=== PATIENT | female | born 1950 | race Two or more races ===

== ENCOUNTER → 2017-01-08 | Outpatient (REF) | payer OTHER | LOC: M SFHCLERA 14:28 | PROVIDERS: ATTEND Nurse Practitioner Family | DX: R30.0 Dysuria (principal) | CPT/HCPCS: 81002; 87088; 87186; G0463 ==

== ENCOUNTER → 2017-06-02 | Outpatient (REF) | payer OTHER ==
[2017-06-02 12:41] LABS: BASO # 0.1 10^3/uL (0.0-0.2); BASO % 0.6 % (0.0-1.0); EOS # 0.4 10^3/uL (0.0-0.50); EOS % 4.4 % (0.0-3.0); IMMATURE GRANULOCYTE % 0.3 % (0-0); LYMPH # 2.8 10^3/uL (1.5-4.5); MEAN CORPUSCULAR HEMOGLOBIN 25.8 pg (27.0-33.0); MEAN CORPUSCULAR HGB CONC 30.8 g/dl (32.0-36.5); MEAN CORPUSCULAR VOLUME 83.7 fl (80.0-96.0); MONO # 0.5 10^3/uL (0.0-0.8); NEUTROPHILS % 56.7 % (36.0-66.0); PLATELET COUNT, AUTOMATED 361 10^3/uL (150-450); RED CELL DISTRIBUTION WIDTH 14.4 % (11.5-14.5); WHITE BLOOD COUNT 8.8 10^3/uL (4.0-10.0)
[2017-06-02 12:55] LABS: FOLATE 14.1 NG/ML (>5.4); VITAMIN B12 LEVEL 350 PG/ML (247-911)
[2017-06-02 12:57] LABS: ALBUMIN 3.8 GM/DL (3.2-5.2); ALBUMIN/GLOBULIN RATIO 1.06 (1.00-1.93); ALKALINE PHOSPHATASE 125 U/L (45-117); ALT/SGPT 22 U/L (12-78); ANION GAP 4 MEQ/L (8-16); AST/SGOT 20 U/L (15-37); BILIRUBIN,TOTAL 0.3 MG/DL (0.2-1.0); BLOOD UREA NITROGEN 12 MG/DL (7-18); CALCIUM LEVEL 9.3 MG/DL (8.8-10.2); CARBON DIOXIDE LEVEL 32 MEQ/L (21-32); CHLORIDE LEVEL 103 MEQ/L (98-107); CREATININE FOR GFR 0.84 MG/DL (0.55-1.02); GLOMERULAR FILTRATION RATE > 60.0 (>45); GLUCOSE, FASTING 167 MG/DL (80-110); POTASSIUM SERUM 4.5 MEQ/L (3.5-5.1); SODIUM LEVEL 139 MEQ/L (136-145); TOTAL PROTEIN 7.4 GM/DL (6.4-8.2)
[2017-06-02 13:40] LABS: ERYTHROCYTE SEDIMENTATION RATE 45 mm/hr (0-30)
== END ==
LOC: M LABNEURO 11:49
PROVIDERS: ATTEND Psychiatry & Neurology Neurology
DX: R20.2 Paresthesia of skin (principal); Z13.29 Encounter for screening for other suspected endocrine disorder; R41.3 Other amnesia; Z79.899 Other long term (current) drug therapy

== ENCOUNTER → 2019-05-29 | Outpatient (CLI) | payer MEDICARE ==
[~2019-05-29] MED LIST: ISOVUE-370 76% 100ML VIAL (Q9967) As Ordered ONE
--- NOTE | 2019-05-30 09:31 | REP ---
Clinical: Hydronephrosis. Technique: Axial precontrast, contrast enhanced, and delayed images of the abdomen and pelvis using 100 ml Isovue 370 intravenous contrast material with coronal and sagittal re-formations. Comparison: 05/12/2019 (outside examination) . Findings: Previously identified mild perinephric and periureteral stranding (left greater than right) has resolved and may have reflected a mild pyelonephritis. There is no evidence for hydroureteronephrosis. Incidental 2.5 cm right peripelvic simple cyst remains unchanged. No further urinary tract pathology is appreciated. Bladder is unremarkable. Liver, spleen, pancreas, and bilateral adrenal glands are normal. Evidence of prior cholecystectomy. Postsurgical changes with evidence for partial resection and anastomoses in the right lower quadrant noted. No evidence for bowel obstruction or acute inflammatory enteric process. Pelvis demonstrates normal bladder and age-appropriate uterus/adnexa. No ascites. No free air. No adenopathy. Atherosclerotic changes to the aorta without aneurysm or dissection. Musculoskeletal structures are intact. Lung bases demonstrate mild irregular changes in the visualized right middle lobe and lingula which remain stable compared to prior examination. Impression: 1. Stable 2.5 cm simple right peripelvic renal cyst. Otherwise normal appearance to the urinary tract system. No hydronephrosis or obvious acute uropathy. 2. No further acute abdominopelvic pathology appreciated. 3. Subtle nodularity with trace bronchiectasis to the right middle lobe and 1.5 cm round subpleural lesion in the visualized lingula again noted and unchanged. These findings are nonspecific. Consider follow-up chest CT to evaluate for stability unless prior examinations are available for comparison. Electronically Signed by Robert Vasques MD 05/30/2019 09:23 A
== END ==
LOC: M RAD 12:54
PROVIDERS: ATTEND Urology
DX: N13.30 Unspecified hydronephrosis (principal)
CPT/HCPCS: 74178; Q9967

== ENCOUNTER → 2019-06-05 | Outpatient (CLI) | payer MEDICARE ==
--- NOTE | 2019-06-05 18:53 | REP ---
CT of the chest without IV contrast: Comparison is the plain film study dated 05/18/2011. There are multiple small sub centimeter ground-glass nodules throughout the right lung. I do not identify any small ground-glass nodules in the left lung. This finding is nonspecific and could represent inflammatory, infectious or neoplastic etiologies. There is a pleural-based 1.4 cm nodular density at the inferior tip of the lingula on image 65. This is nonspecific and could represent a true lung nodule, atelectasis or subsegmental infiltrate. Follow-up to complete resolution is recommended. There are no pleural effusions. There is no mediastinal or axillary lymphadenopathy. The study is insensitive for hilar adenopathy in the absence of IV contrast. The unenhanced thoracic aorta is unremarkable. Cardiac size is normal. The visualized upper abdomen demonstrates surgical clips in the gallbladder fossa. The adrenals are unremarkable. Impression: Multiple small nonspecific ground-glass nodules throughout the right lung. There is a pleural-based 1.4 cm nodular density at the inferior tip of the lingula. No adenopathy or pleural effusion. Electronically Signed by Sadi Baltazar MD 06/05/2019 06:45 P
== END ==
LOC: M RAD 16:50
PROVIDERS: ATTEND Internal Medicine Pulmonary Disease
DX: R91.8 Other nonspecific abnormal finding of lung field (principal)

== ENCOUNTER → 2019-06-21 | Outpatient (REF) | payer MEDICARE ==
[2019-06-21 17:49] LABS: BASO # 0.1 10^3/uL (0.0-0.2); BASO % 0.7 % (0.0-1.0); EOS # 0.3 10^3/uL (0.0-0.5); EOS % 4.4 % (0.0-3.0); HEMATOCRIT 37.6 % (36.0-47.0); HEMOGLOBIN 11.9 g/dl (12.0-15.5); LYMPH # 2.7 10^3/uL (1.5-5.0); LYMPH % 37.7 % (24.0-44.0); MEAN CORPUSCULAR HEMOGLOBIN 28.1 pg (27.0-33.0); MEAN CORPUSCULAR HGB CONC 31.6 g/dl (32.0-36.5); MEAN CORPUSCULAR VOLUME 88.7 fl (80.0-96.0); MONO # 0.5 10^3/uL (0.0-0.8); MONO % 7.3 % (0.0-5.0); NEUTROPHILS # 3.5 10^3/uL (1.5-8.5); NEUTROPHILS % 49.5 % (36.0-66.0); PLATELET COUNT, AUTOMATED 258 10^3/uL (150-450); RED BLOOD COUNT 4.24 10^6/uL (4.00-5.40); WHITE BLOOD COUNT 7.1 10^3/uL (4.0-10.0)
[2019-06-21 17:55] LABS: INR 1.09; PROTHROMBIN TIME 13.9 SECONDS (11.8-14.0)
[2019-06-21 17:56] LABS: PARTIAL THROMBOPLASTIN TIME 35.9 SECONDS (25.0-38.4)
[2019-06-21 18:16] LABS: BLOOD UREA NITROGEN 18 MG/DL (7-18); CALCIUM LEVEL 9.1 MG/DL (8.8-10.2); CARBON DIOXIDE LEVEL 30 MEQ/L (21-32); CHLORIDE LEVEL 102 MEQ/L (98-107); CREATININE FOR GFR 0.92 MG/DL (0.55-1.30); GLOMERULAR FILTRATION RATE > 60.0 (>45); GLUCOSE, FASTING 197 MG/DL (70-100); IMMUNOGLOBULIN G 722 MG/DL (681-1648); IMMUNOGLOBULIN M 83.4 MG/DL (40-230); POTASSIUM SERUM 5.2 MEQ/L (3.5-5.1); RHEUMATOID FACTOR QUANT < 10.0 IU/ML (<15.0); SODIUM LEVEL 137 MEQ/L (136-145)
[2019-06-27 00:06] LABS: ASPERGILLUS FLAVUS ABY Negative (Neg:<1:1); ASPERGILLUS FUMIGATUS ABY Negative (Neg:<1:1); ASPERGILLUS NIGER ABY Negative (Neg:<1:1); CYCLIC CITRULLINATED PEPTIDE 7 units (0-19)
== END ==
LOC: M LAB REF 17:06
PROVIDERS: ATTEND Internal Medicine Pulmonary Disease
DX: R91.1 Solitary pulmonary nodule (principal); J47.9 Bronchiectasis, uncomplicated
CPT/HCPCS: 80048; 82784; 82785; 85025; 85610; 85730; 86200; 86431; 86606; G0463

== ENCOUNTER 2019-07-03 07:40 | Day surgery (SDC) | payer MEDICARE ==
[~2019-07-03] VITALS: Ht 165.1 cm; Wt 91.5 kg
[~2019-07-03 07:40] MED LIST changes: +BENA20TA PO; +CYMB60CA3 PO; +FERR325T16 PO; +GABA600T4 PO; +GEMF600T5 PO; +HUMI40KI SC; -ISOVUE-370 76% 100ML VIAL (Q9967) As Ordered ONE; +LIDOCAINE 1% MDV 20ML VIAL SQ PRN; +LR 1,000 ML IV ONE; +METF10004 PO; +OMEP40CA97 PO; +PAME75CA PO; +TRES100I SC; +XANA0.25 PO
[2019-07-03] MEDS ORDERED: fentaNYL 250 MCG/5 ML INJECTION (J3010) As Ordered ONE (07:46)
[2019-07-03] MEDS ORDERED: ROCURONIUM BROMIDE 50 MG/5 ML VIAL As Ordered ONE (07:47)
[2019-07-03] MEDS ORDERED: PROPOFOL 200 MG/20 ML VIAL As Ordered ONE (07:47)
[2019-07-03] MEDS ORDERED: LIDOCAINE 2% INJ 100 MG/5 ML SDV (FOR ANES.) As Ordered ONE (07:47)
[2019-07-03] MEDS ORDERED: MIDAZOLAM INJ 2 MG/2 ML VIAL (J2250) As Ordered ONE (07:47)
[2019-07-03] MEDS ORDERED: DEXTROSE 50% 50 ML SYRINGE IV ONE (08:45)
[2019-07-03] MEDS ORDERED: THROMBIN SOLN 5,000 UNITS VIAL As Ordered ONE (08:47)
[2019-07-03] MEDS ORDERED: EPINEPHrine INJ 1 MG/ML 1ML AMP As Ordered ONE (08:47)
[2019-07-03] MEDS ORDERED: CETACAINE SPRAY 5GM As Ordered ONE (08:47)
[2019-07-03] MEDS ORDERED: LIDOCAINE 1% SDV INJ 30 ML VIAL As Ordered ONE (08:47)
[2019-07-03] MEDS ORDERED: LIDOCAINE VISCOUS 2% SOLN 15ML UDC As Ordered ONE (08:48)
[2019-07-03] MEDS ORDERED: GLUCOSE TABS PO (08:54)
[2019-07-03] MEDS ORDERED: EPINEPHrine 1MG/10ML SYRINGE 1.5IN As Ordered ONE ×2 (08:55→10:16)
[2019-07-03] MEDS ORDERED: dexameTHASONE 4 MG/ML 1ML VIAL (J1100) As Ordered ONE (09:43)
[2019-07-03] MEDS ORDERED: ONDANSETRON 4MG/2ML VIAL (J2405) As Ordered ONE (09:43)
[2019-07-03] MEDS ORDERED: SUGAMMADEX SODIUM 500 MG/5 ML VIAL (BRIDION) As Ordered ONE (09:49)
[2019-07-03] MEDS ORDERED: ONDANSETRON 4MG/2ML VIAL (J2405) IV PRN (11:00)
[2019-07-03] MEDS ORDERED: LR 1,000 ML IV SCH (11:00)
[2019-07-03] MEDS ORDERED: oxyCODONE 5MG TAB PO PRN (11:00)
[2019-07-03] MEDS ORDERED: fentaNYL 100 MCG/2 ML INJECTION (J3010) IV PRN (11:00)
--- NOTE | 2019-07-03 11:06 | REP ---
Clinical: Status post bronchoscopy . Comparison: 05/18/2011 . Findings: The mediastinum and cardiac silhouette are stable and within normal limits for portable technique. The lung arroyo are clear without acute consolidation, effusion, or pneumothorax. Skeletal structures are intact. Impression: No acute cardiopulmonary process appreciated. Electronically Signed by Robert Vasques MD 07/03/2019 10:57 A
--- NOTE | 2019-07-03 11:10 | REP ---
Limited chest x-ray series: Two views. History: Bronchoscopic evaluation. 1 minute 58 seconds of fluoroscopy time is reported. Findings: A sequence two last image hold fluoroscopically obtained spot radiographs demonstrate bronchoscopy and associated catheter manipulation left lung base. Electronically Signed by Jesús York MD 07/03/2019 11:53 A
[2019-07-03 12:32] VITALS: BP 150/68
--- NOTE | 2019-07-03 12:56 | ROOR ---
Patient Name: Elly Cabrera Procedure Date: 07/03/2019 9:11 AM Date of : 1950 Admit Type: Outpatient Age: 68 Room: Main OR Note Status: Finalized Attending MD: Tracie Martini MD Procedure: Bronchoscopy Indications: Left upper lobe nodule, Abnormal CT scan of chest Providers: Tracie Martini MD (Doctor) Referring MD: Kevin Wolff Md (Referring MD) Requesting Physician: Medicines: General Anesthesia, Cetacaine topical Complications: No immediate complications. Estimated blood loss: Minimal Procedure: Pre-Anesthesia Assessment: - Prior to the procedure, a History and Physical was performed, and patient medications and allergies were reviewed. The patient's tolerance of previous anesthesia was also reviewed. The risks and benefits of the procedure and the sedation options and risks were discussed with the patient. All questions were answered, and informed consent was obtained. Prior Anticoagulants: The patient has taken aspirin. ASA Grade Assessment: II - A patient with mild systemic disease. After reviewing the risks and benefits, the patient was deemed in satisfactory condition to undergo the procedure. The Bronchoscope was introduced through the mouth, via the endotracheal tube (the patient was intubated for the procedure) and advanced to the tracheobronchial tree of both lungs. The procedure was accomplished without difficulty. The patient tolerated the procedure well. Findings: The endotracheal tube is in good position. The visualized portion of the trachea is of normal caliber. The bina is sharp. The tracheobronchial tree was examined to at least the first subsegmental level. Bronchial anatomy is normal; there are no endobronchial lesions. There were some thick white mucoid secretions throughout the lung and bronchial mucosa with webbing and in HENRRY there was some edematous mucosa with no endobronchial lesions. Electromagnetic navigation bronchoscopy utilizing the Cortex[employer]esiSplendia system with iLogic upgrade was performed. The CT scan was used for planning purposes. A virtual bronchoscopic image was generated using the planning software and the bina, left main bronchus bina, left lower lobe basilar segment, right upper lobe, right middle lobe and right lower lobe basilar segment registration points were marked on the virtual image. The target in the inferior lingula segment of the left upper lobe was marked. A nodule 1.5 cm in size was found and a pathway was created. After a complete airway exam, the locatable guide/extended working channel was inserted and an automatic registration was performed by advancing the scope through the bina, left main bronchus bina, left lower lobe basilar segment, right upper lobe, right middle lobe and right lower lobe basilar segment. The navigation phase was then begun to locate the target lesion(s). Positioning off-center (in relation to the lesion) was confirmed using the Olympus radial probe US catheter. The locatable guide was removed from the extended working channel. Fluoroscopy guided transbronchial brushings of a nodule were obtained in the inferior lingula segment of the left upper lobe with a needle brush and sent for routine cytology. Transbronchial brushing technique was selected because the sampling site was not visible endoscopically. Transbronchial needle aspirations of a nodule were performed in the inferior lingula segment of the left upper lobe GenCut needle and sent for routine cytology. The procedure was guided by fluoroscopy. Transbronchial needle aspiration technique was selected because the sampling site was not visible endoscopically. Transbronchial biopsies of a nodule were performed in the inferior lingula segment of the left upper lobe using forceps and sent for histopathology examination. The procedure was guided by fluoroscopy. Transbronchial biopsy technique was selected because the sampling site was not visible endoscopically. Bronchoalveolar lavage was performed in the HENRRY inferior lingular segment (B5) of the lung and sent for cell count, bacterial culture, viral smears & culture, and fungal & AFB analysis and cytology. The return was blood-tinged. Bronchoalveolar lavage was performed in the RUL anterior segment (B3) of the lung and sent for cell count, bacterial culture, viral smears & culture, and fungal & AFB analysis and cytology. The return was blood-tinged. Bronchoalveolar lavage was performed in the RML medial segment (B5) of the lung and sent for cell count, bacterial culture, viral smears & culture, and fungal & AFB analysis and cytology. The return was cloudy. Mucous plugs were present in the return fluid. Bronchoalveolar lavage was performed in the RLL superior segment (B6) of the lung and sent for cell count, bacterial culture, viral smears & culture, and fungal & AFB analysis and cytology. The return was cloudy. Impression: - Left upper lobe nodule - Abnormal CT scan of chest - The airway examination was normal, some thick white mucoid secretions. - Electromagnetic navigation bronchoscopy was performed. - Transbronchial brushings were obtained of nodule in lingula. - A transbronchial needle aspiration was performed of nodule in lingula. - Transbronchial lung biopsies were performed of nodule in lingula. - Bronchoalveolar lavage was performed in lingula. - Bronchoalveolar lavage was performed in RUL. - Bronchoalveolar lavage was performed RML. - Bronchoalveolar lavage was performed in RLL. Recommendation: - Follow up with bronchoscopist as previously scheduled. Attending Participation: I personally performed the entire procedure. Tracie Martini MD 07/03/2019 12:55:55 PM Number of Addenda: 0 Note Initiated On: 07/03/2019 9:11 AM
[2019-07-03 14:10] LABS: COLOR COLORLESS (COLORLESS); SOURCE RIGHT LOWER LOBE
[2019-07-03 14:11] LABS: APPEARANCE CLEAR (CLEAR)
[2019-07-03 14:22] LABS: APPEARANCE CLEAR (CLEAR); COLOR COLORLESS (COLORLESS); SOURCE RIGHT MIDDLE LOBE
[2019-07-03 14:41] LABS: COLOR PINK (COLORLESS); SOURCE RIGHT UPPER LOBE
[2019-07-03 14:42] LABS: APPEARANCE TURBID (CLEAR)
[2019-07-03 14:45] LABS: SOURCE BRON ALVEOLAR LAVAGE
[2019-07-03 14:46] LABS: APPEARANCE HAZY (CLEAR); COLOR PINK (COLORLESS)
[2019-07-03 16:38] LABS: MONOCYTES/MACROPHAGES, BAL 20 %
[2019-07-03 16:45] LABS: MONOCYTES/MACROPHAGES, BAL 13 %
[2019-07-03 16:52] LABS: MONOCYTES/MACROPHAGES, BAL 9 %
== END 2019-07-03 12:45 | disposition home or self-care (01) ==
LOC: M SDC 07:40
PROVIDERS: ATTEND Internal Medicine Pulmonary Disease
DX: R91.1 Solitary pulmonary nodule (principal); J47.9 Bronchiectasis, uncomplicated; R05 Cough; I10 Essential (primary) hypertension; E78.5 Hyperlipidemia, unspecified; E11.9 Type 2 diabetes mellitus without complications; K21.9 Gastro-esophageal reflux disease without esophagitis; D64.9 Anemia, unspecified; M79.7 Fibromyalgia; L40.9 Psoriasis, unspecified; F41.9 Anxiety disorder, unspecified; F32.9 Major depressive disorder, single episode, unspecified; Z88.7 Allergy status to serum and vaccine; Z79.899 Other long term (current) drug therapy; Z87.891 Personal history of nicotine dependence
CPT/HCPCS: 31623; 31624; 31627; 31628; 31629; 71045; 76000; 87070; 87077; 87102; 87116; 87184; 87186; 87205; 87206; 88104; 88108; 88173; 88305; 88313; 89051; J1100; J2250; J2405; J3010

== ENCOUNTER → 2019-10-02 | Outpatient (CLI) | payer MEDICARE ==
[~2019-10-02] MED LIST changes: +GLUCOSE TABS PO; -LIDOCAINE 1% MDV 20ML VIAL SQ PRN; -LR 1,000 ML IV ONE
--- NOTE | 2019-10-02 18:08 | REP ---
Whole body radionuclide PET scan: Comparison is a chest CT dated 06/05/2019. On the chest CT there is a pleural-based 1.4 cm nodule at the inferior tip of the left upper lobe lingular segment. In addition, there are approximately five small 5 mm ground-glass nodules in the right lung. However, these are too small to be visualized on PET scan. PET scanning is performed from skull base to the upper thighs: Neck and supraclavicular areas: There is a hypermetabolic focus in the mentum of the mandible to the left of midline. The maximal standard uptake value is 6.5. This may be related to dentition. There are no other foci in the neck or supraclavicular areas. Chest: The the 1.4 cm nodule inferiorly in the lingula demonstrates a standard uptake a maximal standard uptake value of 0.75, indicating there is no radiotracer uptake. There are no hypermetabolic foci otherwise in the chest. Abdomen, pelvis and upper thighs: There are no hypermetabolic foci. There is nonspecific bowel uptake. Impression: There is no radiolabeling of the 1.4 cm lung nodule in the lingular segment of the left upper lobe. There is an hypermetabolic focus in the mentum of the mandible to the left of midline, possibly related to dentition. There are no other hypermetabolic foci. The study is performed with 9.03 mCi of F 18 FDG. Electronically Signed by Sadi Baltazar MD 10/02/2019 06:00 P
== END ==
LOC: M PLARAD 08:17
PROVIDERS: ATTEND Internal Medicine Pulmonary Disease
DX: R91.1 Solitary pulmonary nodule (principal)
CPT/HCPCS: 78815; A9552

== ENCOUNTER → 2020-10-16 | Outpatient (CLI) | payer MEDICARE ==
--- NOTE | 2020-10-17 08:08 | REP ---
INDICATION: OTHER NONSPECIFIC ABNORMAL FINDING OF LUNG COMPARISON: 06/05/2019 TECHNIQUE: Axial noncontrast images from the thoracic inlet to the upper abdomen with coronal and sagittal reformations. This CT examination was performed using the following dose reduction techniques: Automated exposure control, adjustment of mA and/or kv according to the patient's size, and use of iterative reconstruction technique. FINDINGS: Moderate bronchiectatic changes are appreciated along with small scattered nodular densities up to 3 mm which are somewhat similar to prior examination and otherwise nonspecific. There is an area of possibly progressive chronic atelectasis involving the lingula which is increased from prior examination. No acute consolidation, obvious significant nodule or mass lesion otherwise appreciated. No pleural effusion. No pneumothorax. Mediastinal lymph nodes measure up to approximately 11 mm in the pretracheal space and are nonspecific. Atherosclerotic changes to the thoracic aorta and coronary arteries noted without aortic aneurysm or cardiomegaly. Surrounding musculoskeletal structures demonstrate age-related changes without acute osseous abnormality. Limited upper abdomen demonstrates normal bilateral adrenal glands and evidence for prior cholecystectomy. IMPRESSION: Relatively chronic appearing changes as described above including bronchiectasis and subtle scattered small nodular densities similar to prior examination along with presumed progressive chronic atelectasis at the lingula. Correlation with physical examination and auscultation is recommended. <Electronically signed by Robert Vasques > 10/17/20 [id number]
== END ==
LOC: M RAD 13:03
PROVIDERS: ATTEND Internal Medicine Pulmonary Disease
DX: J47.9 Bronchiectasis, uncomplicated (principal); R91.8 Other nonspecific abnormal finding of lung field

== ENCOUNTER 2021-05-26 12:44 | Emergency (ER) | payer MEDICARE ==
[~2021-05-26] VITALS: Ht 165.1 cm; Wt 90.4 kg
[~2021-05-26 12:44] MED LIST changes: +FERR324T21 PO; -FERR325T16 PO; +OMEP40CA4 PO; -OMEP40CA97 PO
[2021-05-26] MEDS ORDERED: XELJ5TAB (13:18)
[2021-05-26 15:21] LABS: BASO % 0.3 % (0.0-1.0); EOS # 0.1 10^3/uL (0.0-0.5); EOS % 0.9 % (0.0-3.0); HEMOGLOBIN 11.9 g/dl (12.0-15.5); LYMPH # 2.7 10^3/uL (1.5-5.0); LYMPH % 23.4 % (24.0-44.0); MEAN CORPUSCULAR HEMOGLOBIN 27.9 pg (27.0-33.0); MEAN CORPUSCULAR HGB CONC 31.3 g/dl (32.0-36.5); MONO # 0.5 10^3/uL (0.0-0.8); NEUTROPHILS # 8.3 10^3/uL (1.5-8.5); NEUTROPHILS % 70.9 % (36.0-66.0); PLATELET COUNT, AUTOMATED 323 10^3/uL (150-450); RED BLOOD COUNT 4.27 10^6/uL (4.00-5.40); WHITE BLOOD COUNT 11.7 10^3/uL (4.0-10.0)
[2021-05-26 15:31] LABS: INR 0.99; PROTHROMBIN TIME 13.5 SECONDS (12.7-14.5)
[2021-05-26 15:32] LABS: PARTIAL THROMBOPLASTIN TIME 33.8 SECONDS (25.9-37.0)
[2021-05-26 15:52] LABS: ALBUMIN 3.7 GM/DL (3.2-5.2); ALT/SGPT 37 U/L (12-78); BILIRUBIN,DIRECT 0.1 MG/DL (0.0-0.2); BILIRUBIN,TOTAL 0.2 MG/DL (0.2-1.0); LIPASE 66 U/L (73-393); TOTAL PROTEIN 7.2 GM/DL (6.4-8.2)
[2021-05-26 16:08] LABS: BLOOD UREA NITROGEN 15 MG/DL (7-18); CALCIUM LEVEL 9.4 MG/DL (8.8-10.2); CARBON DIOXIDE LEVEL 32 MEQ/L (21-32); CHLORIDE LEVEL 103 MEQ/L (98-107); CREATININE FOR GFR 0.84 MG/DL (0.55-1.30); GLOMERULAR FILTRATION RATE > 60.0 (>39); GLUCOSE, FASTING 94 MG/DL (70-100); SODIUM LEVEL 140 MEQ/L (136-145)
--- NOTE | 2021-05-26 16:11 | REP ---
INDICATION: r rib pain, cough COMPARISON: 07/03/2019, 05/18/2011. TECHNIQUE: PA/Lateral FINDINGS: Lungs: There is mild bibasilar fibro atelectatic change. There is no acute infiltrate or pneumothorax. Heart: Normal in size. Mediastinum: Mediastinal silhouette unremarkable. Pleural angles: Unremarkable.. Bones and soft tissues: There are degenerative changes of the spine without compression deformity. IMPRESSION: No acute pulmonary disease. <Electronically signed by Sadi Rodriguez > 05/26/21 [id number]
[2021-05-26] MEDS ORDERED: KETOROLAC 30 MG/ML 1ML VIAL IV ONE (16:25)
--- NOTE | 2021-05-26 16:57 | REP ---
INDICATION: R flank pain, bloody stools. COMPARISON: 05/29/2019 the latest prior before and after contrast TECHNIQUE: Standard helical technique without intravenous or oral bowel preparatory contrast administration. Stone protocol utilized due to right flank pain. FINDINGS: The lung bases are unchanged. There is a stable pleural base nodule in the inferior lingula. The liver and spleen are unchanged. The pancreas and adrenal glands are unchanged. The kidneys are essentially unchanged. There is a right renal cyst status quo. There is no nephroureterolithiasis, hydronephrosis, or hydroureter. The abdominal aorta and para-aortic regions are unchanged. There is no significant change in appearance of the bowel loops or the mesenteries. There is a likely incidental 2 cm sized left ovarian cyst. There is no evidence of free fluid or free air. Bone window technique throughout the examination shows no significant change in appearance of the osseous structures. IMPRESSION: There is no evidence of acute disease. CT findings as described above. <Electronically signed by Timi Pugh > 05/26/21 [id number]
[2021-05-26 17:34] VITALS: BP 142/82
== END 2021-05-26 17:46 | disposition home or self-care (01) ==
LOC: M ED 12:44
DX: K64.4 Residual hemorrhoidal skin tags (principal); K62.5 Hemorrhage of anus and rectum; S29.012A Strain of muscle and tendon of back wall of thorax, initial encounter; X58.XXXA Exposure to other specified factors, initial encounter; Y92.9 Unspecified place or not applicable; Y93.9 Activity, unspecified; Y99.9 Unspecified external cause status; E11.9 Type 2 diabetes mellitus without complications; I10 Essential (primary) hypertension; Z90.49 Acquired absence of other specified parts of digestive tract; Z87.19 Personal history of other diseases of the digestive system; Z79.4 Long term (current) use of insulin; Z79.899 Other long term (current) drug therapy; Z88.7 Allergy status to serum and vaccine
CPT/HCPCS: 71046; 74176; 80047; 80048; 80076; 83690; 85025; 85610; 85730; 86850; 86900; 86901; 96374; 99284; J1885

== ENCOUNTER → 2021-10-26 | Outpatient (CLI) | payer MEDICARE ==
[~2021-10-26] MED LIST changes: -CYMB60CA3 PO; +CYMB60CA4 PO; +XELJ5TAB
== END ==
LOC: M RAD 12:53
PROVIDERS: ATTEND Internal Medicine Pulmonary Disease
DX: R91.8 Other nonspecific abnormal finding of lung field (principal); J47.9 Bronchiectasis, uncomplicated; J98.11 Atelectasis; I70.0 Atherosclerosis of aorta; I25.10 Atherosclerotic heart disease of native coronary artery without angina pectoris

== ENCOUNTER → 2022-01-07 | Outpatient (CLI) | payer MEDICARE | LOC: M RAD 15:30 | PROVIDERS: ATTEND Internal Medicine Pulmonary Disease | DX: J47.9 Bronchiectasis, uncomplicated (principal); R05.9 Cough, unspecified; R91.8 Other nonspecific abnormal finding of lung field ==

== ENCOUNTER → 2022-03-24 | Outpatient (CLI) | payer MEDICARE ==
[2022-03-24 15:17] LABS: BASO % 0.4 % (0.0-1.0); EOS # 0.4 10^3/uL (0.0-0.5); EOS % 4.5 % (0.0-3.0); HEMATOCRIT 35.3 % (36.0-47.0); HEMOGLOBIN 10.6 g/dl (12.0-15.5); LYMPH # 2.2 10^3/uL (1.5-5.0); MEAN CORPUSCULAR HEMOGLOBIN 26.4 pg (27.0-33.0); MEAN CORPUSCULAR VOLUME 87.8 fl (80.0-96.0); MONO # 0.6 10^3/uL (0.0-0.8); MONO % 6.3 % (2.0-8.0); NEUTROPHILS # 5.9 10^3/uL (1.5-8.5); NEUTROPHILS % 64.3 % (36.0-66.0); PLATELET COUNT, AUTOMATED 314 10^3/uL (150-450); RED BLOOD COUNT 4.02 10^6/uL (4.00-5.40); WHITE BLOOD COUNT 9.2 10^3/uL (4.0-10.0)
[2022-03-24 15:46] LABS: ERYTHROCYTE SEDIMENTATION RATE 49 mm/hr (0-30)
== END ==
LOC: M PLALAB 13:42
PROVIDERS: ATTEND Physician Assistant Surgical
DX: L03.115 Cellulitis of right lower limb (principal)

== ENCOUNTER → 2022-04-02 | Outpatient (CLI) | payer MEDICARE | LOC: M RAD 15:11 | PROVIDERS: ATTEND Physician Assistant Surgical | DX: M79.661 Pain in right lower leg (principal); L03.115 Cellulitis of right lower limb ==

== ENCOUNTER → 2022-08-24 | Outpatient (REF) | payer MEDICARE | LOC: M LAB REF 16:59 | PROVIDERS: ATTEND Internal Medicine Pulmonary Disease | DX: J47.1 Bronchiectasis with (acute) exacerbation (principal) ==

== ENCOUNTER 2023-05-04 17:31 | Emergency (ER) | payer MEDICARE ==
[~2023-05-04] VITALS: Ht 165.1 cm; Wt 80.1 kg
[2023-05-04 17:32] VITALS: TEMP 98.2
[2023-05-04] MEDS ORDERED: STEL45IN (17:49)
[2023-05-04] MEDS ORDERED: EXCETAB32 PO (17:54)
[2023-05-04] MEDS ORDERED: VITA-243 PO (17:54)
[2023-05-04] MEDS ORDERED: OMEG10002 PO (17:54)
[2023-05-04] MEDS ORDERED: PRES10CA2 PO (17:54)
[2023-05-04] MEDS ORDERED: CHOL125C5 PO (17:54)
[2023-05-04] MEDS ORDERED: ZINC220CA PO (17:54)
[2023-05-04] MEDS ORDERED: CO Q100C PO (17:54)
[2023-05-04 19:27] LABS: BASO % 0.2 % (0.0-1.0); EOS # 0.7 10^3/uL (0.0-0.5); EOS % 5.9 % (0.0-3.0); HEMATOCRIT 32.3 % (36.0-47.0); HEMOGLOBIN 10.3 g/dl (12.0-15.5); LYMPH # 1.4 10^3/uL (1.5-5.0); LYMPH % 11.4 % (24.0-44.0); MEAN CORPUSCULAR HEMOGLOBIN 26.7 pg (27.0-33.0); MEAN CORPUSCULAR HGB CONC 31.9 g/dl (32.0-36.5); MEAN CORPUSCULAR VOLUME 83.7 fl (80.0-96.0); MONO # 0.9 10^3/uL (0.0-0.8); MONO % 7.3 % (2.0-8.0); NEUTROPHILS # 9.4 10^3/uL (1.5-8.5); NEUTROPHILS % 74.6 % (36.0-66.0); PLATELET COUNT, AUTOMATED 307 10^3/uL (150-450); RED BLOOD COUNT 3.86 10^6/uL (4.00-5.40); WHITE BLOOD COUNT 12.6 10^3/uL (4.0-10.0)
[2023-05-04 19:35] LABS: LIPASE 22 U/L (12-53)
[2023-05-04 19:37] LABS: ALBUMIN 2.5 G/DL (3.2-5.2); ALKALINE PHOSPHATASE 333 U/L (46-116); ALT/SGPT 33 U/L (7.0-40); AST/SGOT 28 U/L (<34); BILIRUBIN,DIRECT < 0.1 MG/DL (<0.4); BILIRUBIN,TOTAL 0.2 MG/DL (0.3-1.2); BLOOD UREA NITROGEN 14 MG/DL (9-23); CALCIUM LEVEL 8.5 MG/DL (8.3-10.6); CARBON DIOXIDE LEVEL 26 MMOL/L (20-31); CHLORIDE LEVEL 99 MMOL/L (98-107); CREATININE FOR GFR 0.89 MG/DL (0.55-1.30); GLOMERULAR FILTRATION RATE > 60.0 (>39); GLUCOSE, FASTING 234 MG/DL (74-106); POTASSIUM SERUM 4.8 MMOL/L (3.5-5.1); SODIUM LEVEL 134 MMOL/L (136-145)
[2023-05-04] MEDS ORDERED: NS 1,000 ML IV ONE (20:00)
[2023-05-04] MEDS ORDERED: ISOVUE-370 76% 100ML VIAL As Ordered ONE (20:05)
[2023-05-04 20:46] LABS: INR 1.47; PARTIAL THROMBOPLASTIN TIME 37.5 SECONDS (24.8-34.2); PROTHROMBIN TIME 17.5 SECONDS (12.5-14.5)
[2023-05-04] MEDS ORDERED: AMOX875T2 PO (21:38)
[2023-05-04] MEDS ORDERED: AUGMENTIN 875 MG TAB PO ONE (21:40)
[2023-05-04 21:51] VITALS: BP 145/66; O2SAT 99
== END 2023-05-04 21:52 | disposition home or self-care (01) ==
LOC: M ED 17:31
DX: K52.9 Noninfective gastroenteritis and colitis, unspecified (principal); I25.10 Atherosclerotic heart disease of native coronary artery without angina pectoris; R91.1 Solitary pulmonary nodule; Z79.4 Long term (current) use of insulin; Z79.899 Other long term (current) drug therapy; Z88.7 Allergy status to serum and vaccine
CPT/HCPCS: 71260; 74177; 80048; 80076; 81001; 83690; 85025; 85610; 85730; 86850; 86900; 86901; 87086; 99284; Q9967

== ENCOUNTER 2023-09-05 13:43 | Emergency (ER) | payer MEDICARE, OTHER ==
[~2023-09-05] VITALS: Ht 165.1 cm; Wt 77.8 kg
[~2023-09-05 13:43] MED LIST changes: +AMOX875T2 PO; +CHOL125C5 PO; +CO Q100C PO; +EXCETAB32 PO; +OMEG10002 PO; +PRES10CA2 PO; +STEL45IN; +VITA-243 PO; +ZINC220CA PO
[2023-09-05] MEDS ORDERED: PRED20TA PO (15:44)
[2023-09-05] MEDS ORDERED: predniSONE 20 MG TAB PO ONE (15:45)
[2023-09-05 15:56] VITALS: BP 140/63; TEMP 99.2; O2SAT 96
== END 2023-09-05 16:02 | disposition home or self-care (01) ==
LOC: M ED 13:43
DX: U07.1 COVID-19 (principal); J44.1 Chronic obstructive pulmonary disease with (acute) exacerbation; R00.0 Tachycardia, unspecified; I49.1 Atrial premature depolarization; M79.7 Fibromyalgia; E78.5 Hyperlipidemia, unspecified; I10 Essential (primary) hypertension; E11.9 Type 2 diabetes mellitus without complications; Z88.7 Allergy status to serum and vaccine; Z87.891 Personal history of nicotine dependence; Z79.4 Long term (current) use of insulin; Z79.52 Long term (current) use of systemic steroids; Z79.83 Long term (current) use of bisphosphonates; Z79.899 Other long term (current) drug therapy
CPT/HCPCS: 71046; 87486; 87581; 87633; 87798; 93005; 99284; J7512

== ENCOUNTER → 2023-10-17 | Outpatient (CLI) | payer OTHER ==
[~2023-10-17] MED LIST changes: +PRED20TA PO
== END ==
LOC: M RAD 10:26
PROVIDERS: ATTEND Internal Medicine Pulmonary Disease
DX: J47.9 Bronchiectasis, uncomplicated (principal)

== ENCOUNTER 2023-10-23 12:05 | Emergency (ER) | payer OTHER ==
[~2023-10-23] VITALS: Ht 165.1 cm; Wt 77.2 kg
[2023-10-23 14:26] LABS: BASO % 0.3 % (0.0-1.0); EOS # 0.1 10^3/uL (0.0-0.5); EOS % 0.4 % (0.0-3.0); HEMATOCRIT 33.6 % (36.0-47.0); HEMOGLOBIN 10.5 g/dl (12.0-15.5); LYMPH # 1.5 10^3/uL (1.5-5.0); LYMPH % 13.2 % (24.0-44.0); MEAN CORPUSCULAR HEMOGLOBIN 26.1 pg (27.0-33.0); MEAN CORPUSCULAR HGB CONC 31.3 g/dl (32.0-36.5); MEAN CORPUSCULAR VOLUME 83.4 fl (80.0-96.0); MONO # 0.7 10^3/uL (0.0-0.8); MONO % 6.6 % (2.0-8.0); NEUTROPHILS # 8.8 10^3/uL (1.5-8.5); NEUTROPHILS % 79.1 % (36.0-66.0); PLATELET COUNT, AUTOMATED 324 10^3/uL (150-450); RED BLOOD COUNT 4.03 10^6/uL (4.00-5.40); WHITE BLOOD COUNT 11.1 10^3/uL (4.0-10.0)
[2023-10-23 14:54] LABS: ALBUMIN 2.7 G/DL (3.2-5.2); ALKALINE PHOSPHATASE 193 U/L (46-116); ALT/SGPT 27 U/L (7.0-40); AST/SGOT 26 U/L (<34); BILIRUBIN,DIRECT < 0.1 MG/DL (<0.4); BILIRUBIN,TOTAL 0.3 MG/DL (0.3-1.2); BLOOD UREA NITROGEN 16 MG/DL (9-23); CALCIUM LEVEL 8.6 MG/DL (8.3-10.6); CARBON DIOXIDE LEVEL 26 MMOL/L (20-31); CHLORIDE LEVEL 102 MMOL/L (98-107); CREATININE FOR GFR 0.67 MG/DL (0.55-1.30); GLOMERULAR FILTRATION RATE > 60.0 (>39); GLUCOSE, FASTING 247 MG/DL (74-106); SODIUM LEVEL 134 MMOL/L (136-145)
[2023-10-23 14:57] LABS: THYROXINE (T4) 4.6 UG/DL (4.5-10.9)
[2023-10-23 14:58] LABS: THYROID STIMULATING HORMONE 1.523 uIU/ML (0.55-4.78)
[2023-10-23 15:02] LABS: PROCALCITONIN 0.14 ng/ml
[2023-10-23] MEDS ORDERED: ZITH500T PO (16:15)
[2023-10-23] MEDS: AZITHROMYCIN 250MG TABLET PO ONE (16:58)
[2023-10-23 17:00] VITALS: BP 131/65; TEMP 98.8; O2SAT 97
== END 2023-10-23 17:17 | disposition home or self-care (01) ==
LOC: M ED 12:05
DX: J18.9 Pneumonia, unspecified organism (principal); B34.8 Other viral infections of unspecified site; R00.0 Tachycardia, unspecified; Z88.7 Allergy status to serum and vaccine; Z79.82 Long term (current) use of aspirin; Z79.4 Long term (current) use of insulin; Z79.83 Long term (current) use of bisphosphonates; Z79.52 Long term (current) use of systemic steroids; Z79.899 Other long term (current) drug therapy

== ENCOUNTER → 2023-12-08 | Outpatient (CLI) | payer OTHER ==
[~2023-12-08] MED LIST changes: +ZITH500T PO
== END ==
LOC: M RAD 11:54
PROVIDERS: ATTEND Internal Medicine Pulmonary Disease
DX: J47.9 Bronchiectasis, uncomplicated (principal)

== ENCOUNTER → 2024-03-22 | Outpatient (REF) | payer OTHER | LOC: M SFHCRHEU 13:46 | PROVIDERS: ATTEND Internal Medicine | DX: L40.50 Arthropathic psoriasis, unspecified (principal) ==

== ENCOUNTER → 2024-04-04 | Outpatient (CLI) | payer OTHER | LOC: M RAD 15:23 | PROVIDERS: ATTEND Internal Medicine Pulmonary Disease | DX: J47.9 Bronchiectasis, uncomplicated (principal) ==

== ENCOUNTER → 2024-04-06 | Outpatient (CLI) | payer OTHER | LOC: M PLAIMG 07:53 | PROVIDERS: ATTEND Internal Medicine Pulmonary Disease | DX: J98.4 Other disorders of lung (principal); R91.8 Other nonspecific abnormal finding of lung field ==

== ENCOUNTER → 2024-05-31 | Outpatient (REF) | payer OTHER ==
[~2024-05-31] MED LIST changes: +GABA-1490 PO; -GABA600T4 PO
[2024-05-31 17:44] LABS: BASO # 0.1 10^3/uL (0.0-0.2); BASO % 0.5 % (0.0-1.0); EOS # 0.2 10^3/uL (0.0-0.5); EOS % 2.1 % (0.0-3.0); HEMATOCRIT 37.8 % (36.0-47.0); HEMOGLOBIN 11.8 g/dl (12.0-15.5); LYMPH # 1.9 10^3/uL (1.5-5.0); LYMPH % 19.1 % (24.0-44.0); MEAN CORPUSCULAR HEMOGLOBIN 27.5 pg (27.0-33.0); MEAN CORPUSCULAR HGB CONC 31.2 g/dl (32.0-36.5); MEAN CORPUSCULAR VOLUME 88.1 fl (80.0-96.0); MONO # 0.6 10^3/uL (0.0-0.8); MONO % 6.1 % (2.0-8.0); NEUTROPHILS # 7.2 10^3/uL (1.5-8.5); NEUTROPHILS % 71.9 % (36.0-66.0); PLATELET COUNT, AUTOMATED 243 10^3/uL (150-450); RED BLOOD COUNT 4.29 10^6/uL (4.00-5.40)
[2024-05-31 17:55] LABS: ERYTHROCYTE SEDIMENTATION RATE 36 mm/hr (0-30)
[2024-05-31 18:11] LABS: ALBUMIN 3.6 G/DL (3.2-5.2); ALKALINE PHOSPHATASE 128 U/L (46-116); ALT/SGPT 22 U/L (7.0-40); AST/SGOT 14 U/L (<34); BILIRUBIN,DIRECT < 0.1 MG/DL (<0.4); BILIRUBIN,TOTAL 0.2 MG/DL (0.3-1.2); BLOOD UREA NITROGEN 15 MG/DL (9-23); CALCIUM LEVEL 9.5 MG/DL (8.3-10.6); CARBON DIOXIDE LEVEL 30 MMOL/L (20-31); CHLORIDE LEVEL 105 MMOL/L (98-107); CREATININE FOR GFR 0.65 MG/DL (0.55-1.30); GLOMERULAR FILTRATION RATE > 60.0 (>39); GLUCOSE, FASTING 129 MG/DL (74-106); POTASSIUM SERUM 4.3 MMOL/L (3.5-5.1); SODIUM LEVEL 140 MMOL/L (136-145); TOTAL PROTEIN 6.7 G/DL (5.7-8.2)
== END ==
LOC: M SFHCRHEU 13:10
PROVIDERS: ATTEND Internal Medicine
DX: L40.50 Arthropathic psoriasis, unspecified (principal)

== ENCOUNTER → 2024-06-04 | Outpatient (CLI) | payer OTHER | LOC: M PLAIMG 10:31 | PROVIDERS: ATTEND Internal Medicine Pulmonary Disease | DX: R91.8 Other nonspecific abnormal finding of lung field (principal); J47.9 Bronchiectasis, uncomplicated; I70.0 Atherosclerosis of aorta; I25.10 Atherosclerotic heart disease of native coronary artery without angina pectoris ==

== ENCOUNTER → 2024-11-21 | Outpatient (CLI) | payer MEDICARE | LOC: M RAD 10:27 | PROVIDERS: ATTEND Nurse Practitioner Family | DX: L40.0 Psoriasis vulgaris (principal) ==

== ENCOUNTER → 2024-12-17 | Outpatient (REF) | payer MEDICARE ==
[2024-12-17 16:30] LABS: BASO # 0.1 10^3/uL (0.0-0.2); BASO % 0.7 % (0.0-1.0); EOS # 0.4 10^3/uL (0.0-0.5); EOS % 4.3 % (0.0-3.0); HEMOGLOBIN 12.4 g/dl (12.0-15.5); LYMPH # 3.5 10^3/uL (1.5-5.0); LYMPH % 33.8 % (24.0-44.0); MEAN CORPUSCULAR HEMOGLOBIN 26.8 pg (27.0-33.0); MEAN CORPUSCULAR HGB CONC 30.2 g/dl (32.0-36.5); MEAN CORPUSCULAR VOLUME 88.7 fl (80.0-96.0); MONO # 0.6 10^3/uL (0.0-0.8); MONO % 6.2 % (2.0-8.0); NEUTROPHILS # 5.6 10^3/uL (1.5-8.5); NEUTROPHILS % 54.7 % (36.0-66.0); PLATELET COUNT, AUTOMATED 311 10^3/uL (150-450); RED BLOOD COUNT 4.62 10^6/uL (4.00-5.40); WHITE BLOOD COUNT 10.2 10^3/uL (4.0-10.0)
[2024-12-17 16:35] LABS: C REACTIVE PROTEIN QUANTITATIV < 0.50 MG/DL (<1.0)
[2024-12-17 16:36] LABS: ALBUMIN 3.6 G/DL (3.2-5.2); ALKALINE PHOSPHATASE 124 U/L (35-104); ALT/SGPT 19 U/L (7.0-40); AST/SGOT 12 U/L (<34); BILIRUBIN,DIRECT < 0.1 MG/DL (<0.4); BILIRUBIN,TOTAL 0.2 MG/DL (0.3-1.2); BLOOD UREA NITROGEN 24 MG/DL (9-23); CALCIUM LEVEL 9.7 MG/DL (8.3-10.6); CARBON DIOXIDE LEVEL 32 MMOL/L (20-31); CHLORIDE LEVEL 102 MMOL/L (98-107); CREATININE FOR GFR 0.76 MG/DL (0.55-1.30); GLOMERULAR FILTRATION RATE 82.2 (>39); GLUCOSE, FASTING 158 MG/DL (74-106); POTASSIUM SERUM 5.5 MMOL/L (3.5-5.1); SODIUM LEVEL 143 MMOL/L (136-145); TOTAL PROTEIN 6.9 G/DL (5.7-8.2)
[2024-12-17 16:38] LABS: TOTAL 25(OH) VITAMIN D 27.8 NG/ML (20.0-100.0)
[2024-12-17 16:49] LABS: ERYTHROCYTE SEDIMENTATION RATE 35 mm/hr (0-30)
== END ==
LOC: M SFHCRHEU 12:37
PROVIDERS: ATTEND Internal Medicine
DX: L40.50 Arthropathic psoriasis, unspecified (principal)

== ENCOUNTER → 2025-01-02 | Outpatient (CLI) | payer MEDICARE | LOC: M WHC 12:45 | PROVIDERS: ATTEND Internal Medicine | DX: Z78.0 Asymptomatic menopausal state (principal); M85.89 Other specified disorders of bone density and structure, multiple sites ==